=== PATIENT | male | born 1975 | race Two or more races ===

== ENCOUNTER 2016-08-18 14:38 | Emergency (ER) | payer SELFPAY ==
[~2016-08-18] VITALS: Ht 175.3 cm; Wt 113.5 kg
[2016-08-18 15:33] LABS: BLOOD UREA NITROGEN 13 mg/dL (7-18); HEMOGLOBIN 15.4 g/dL (13.7-18.0)
[2016-08-18] MEDS ORDERED: INSULIN SC (15:33)
[2016-08-18 15:51] LABS: PATH.CAST-FLAG NOT PRESENT; SPERM-FLAG NOT PRESENT; SRC-FLAG NOT PRESENT; XTAL-FLAG NOT PRESENT; YLC-FLAG NOT PRESENT
[2016-08-18 16:43] VITALS: BP 125/68
== END 2016-08-18 17:26 | disposition home or self-care (01) ==
LOC: ED 15:58
DX: R31.0 Gross hematuria (principal); E11.65 Type 2 diabetes mellitus with hyperglycemia; F17.200 Nicotine dependence, unspecified, uncomplicated
CPT/HCPCS: 36415; 74176; 80048; 81001; 82040; 85025; 99285